=== PATIENT | female | born 1970 | race Caucasian/White ===

== ENCOUNTER → 2016-11-30 | Outpatient (CLI) | payer BC | END | disposition short-term general hospital (02) | LOC: CLCARD 07:39 | DX: I20.9 Angina pectoris, unspecified (principal); R00.2 Palpitations; R06.02 Shortness of breath; F41.9 Anxiety disorder, unspecified ==

== ENCOUNTER → 2016-12-07 | Outpatient (CLI) | payer BC | END | disposition short-term general hospital (02) | LOC: CLCARD 09:01 | DX: I49.3 Ventricular premature depolarization (principal); R00.2 Palpitations; F41.9 Anxiety disorder, unspecified; R06.02 Shortness of breath; I20.9 Angina pectoris, unspecified ==